=== PATIENT | female | born 1990 | race Caucasian/White ===

== ENCOUNTER 2023-03-31 13:10 | Outpatient (CLI) | payer BC, SELFPAY ==
--- NOTE | 2023-03-31 17:00 | W.PM.LAC.MC ---
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[place]) Delivery Information Delivery type: Vaginal Weeks Gestation: 37.0 Gestational Age: AGA Weight: 3.033 kg Baby's Information Baby's Age at Visit: 4 days Jaundice: Yes Reason for Consult Reason for Consult: painful latch Past Experience Past Experience: No Current Frequency of Day Feedings: mom has not nursed baby for about 2 days Pumping Pumping: Yes (with every feeding) Quantity Pumped: 2 - 4 oz total each session Supplementing EMB Supplement: Yes (baby is taking about 30 ml every 2 - 3 hours) Formula Supplement: No Baby Elimination Number of Wet Diapers a Day: 6 - 8 Number of BM a Day: 3 - 5; yellow and seedy Breast/Nipple Condition Breast Information: WNL Engorgement: Yes (resolving) Maternal Nipple Condition - Left: Common Nipple Maternal Nipple Condition - Right: Common Nipple Sore Nipples: Yes Onsite Pre-Feed weight: 2.82 kg Post-Feed weight: 2.876 kg Milk Transferred (mL): 56 Assessments/Interventions Assessments/Interventions: Met with mom and this now 4 day old ex- term AGA baby for consult. Mom rec'd her care in [place] and delivered at [facility] in [place]. She reports has been quite painful from the beginning and it was so bad on 03/29 that she was seen in Urgent Care. The RN suggested mom pump for a few days to help heal her nipples and mom hasn't breastfed since then. She reports baby takes about 30 ml EBM every 2 - 3 hours. She's pumping with every feeding and gets between 2 - 4 oz total each time. She reports her milk began to come in on 03/28, she was very engorged on 03/29, today still feels full but much better. Breasts WNL- symmetrical with rounded lower quadrants, intramammary distance < 1.5 inches. Nipples are everted and don't flatten or retract on compression, damage is healing nicely. Today baby is 7% below BW at 4 DOL. POC report his head was very misshapen at delivery and it sounds like he may have had a cephalohematoma. He's jaundiced to his BLE, dad reports they just came from visit with PCP and TSB = 18.1. PCP was ok with baby returning on 04/01 for a lab draw. Baby's palate is WNL. Upper frenulum is tight, lower frenulum wasn't visualized. He had a strong suck on a finger and his tongue was consistently over the gumline. There was canoeing when lateralizing from right to left. Mom latched baby to the right side with only some verbal cues to point her nipple to baby's nose and then bring him quickly to her when he opened wide. She was comfortable and stated it felt like baby was tugging or pulling at her breast. Baby nursed 5 - 7 minutes before coming off on his own. Dad roused him and mom put him on that same side where he nursed another 5 - 7 minutes. POC tried to rouse him to offer the left side but were unsuccessful. Baby was weighed and had transferred 56 ml! Mom was measured and a smaller flange size suggested, handout given. Plan: 1. Nurse baby ALD, but at least every three hours for now. Try the ideas above to get a wide latch. Offer both sides and POC aware they may need to work to keep him awake while nursing/between sides. 2. Suggested mom pump to comfort prn after nursing. If she wants to do one full pumping session so dad can continue to offer a bottle (to give her a break) that's OK, or she could just pump to comfort as needed and reintroduce pumping and bottle feeding when he's about a month old. 3. Supplementation is not needed unless he doesn't have a good feeding session. 4. Will f/u with PCP in [place] for a lab check on 04/01/23. 5. Declined a one month weight check in . [facility] [employer] [facility] [employer], handout given. 6. Will fax note to PCP. Meds Home Medications and Allergies Home Medications Medication Instructions Recorded Confirmed Type ibuprofen 600 mg tablet 600 mg PO Q6H PRN 04/04/23 04/04/23 History levothyroxine 112 mcg tablet 112 mcg PO QAM 04/04/23 04/04/23 History sertraline 100 mg tablet 100 mg PO DAILY 04/04/23 04/04/23 History valacyclovir 500 mg tablet 500 mg PO DAILY PRN 04/04/23 04/04/23 History Allergies Allergy/AdvReac Type Severity Reaction Status Date / Time No Known Drug Allergies Allergy Verified 04/04/23 12:56
== END 2023-03-31 13:11 | disposition home or self-care (01) ==
PROVIDERS: Visit Provider Obstetrics & Gynecology
DX: Z39.1 Encounter for care and examination of lactating mother (principal)
CPT/HCPCS: 99211